=== PATIENT | male | born 1955 | race Caucasian/White ===

== ENCOUNTER 2024-01-13 16:44 | Emergency (ER) | payer SELFPAY ==
[~2024-01-13] VITALS: Ht 182.9 cm; Wt 86.4 kg
[2024-01-13] VITALS (29 sets, daily range): BP systolic 141–195; BP diastolic 71–108
[~2024-01-13 16:44] MED LIST: MUPIROCIN21 TOP
[2024-01-13] MEDS ORDERED: RYTARY PO (16:59)
[2024-01-13 17:12] LABS: BASO% 0.3 % (0-3); EOS% 0.7 % (0-8); HEMATOCRIT 37.3 % (39.0-50.0); IMMATURE GRANULOCYTES 0.1 % (0.0-5.0); LYMPH% 14.5 % (15-41); MEAN CELL VOLUME 93.7 fL CALC (80.0-100.0); MEAN CORPUSCULAR HGB 32.7 pG CALC (26.0-32.0); MEAN CORPUSCULAR HGB CONC 34.9 g/dL CAL (32.0-36.0); MONO% 6.4 % (2-13); NEUT# 5.59 thou/uL (1.82-7.42); RED BLOOD COUNT 3.98 mill/uL (4.70-6.10); RED CELL DISTRI WIDTH 12.7 % (11.5-15.5)
[2024-01-13 17:30] LABS: ALBUMIN 3.8 g/dL (3.2-5.0); ALKALINE PHOSPHATASE 57 u/l (38-126); ANION GAP 4 (6-22 (CALC)); BILIRUBIN, TOTAL 1.5 mg/dL (0.2-1.3); BUN 25 mg/dL (8-23); BUN/CREATININE RATIO 29 (12-20 (CALC)); CARBON DIOXIDE 25 mmol/l (22-30); CHLORIDE 112 mmol/l (95-108); CREATININE 0.8 mg/dL (0.7-1.3); ESTIMATED GFR 97 ML/MIN (>=90 (CALC)); ETHYL ALCOHOL 0 mg/dl (0-30); MAGNESIUM 2.1 mg/dL (1.6-2.3); POTASSIUM 3.7 mmol/l (3.5-5.1); SGOT/AST 77 u/l (19-48); SODIUM 137 mmol/l (137-146); TOTAL PROTEIN 6.4 g/dL (6.3-8.2)
[2024-01-13 17:52] LABS: URINE BLOOD DIPSTICK Negative (NEGATIVE); URINE GLUCOSE - DIPSTICK Negative (NEGATIVE); URINE KETONE 15 mg/dL (NEGATIVE); URINE LEUK ESTERASE Negative (NEGATIVE); URINE NITRITE - DIPSTICK Negative (Negative); URINE PROTEIN - DIPSTICK 30 mg/dL (NEG-TRACE); URINE SPECIFIC GRAVITY >=1.030; URINE UROBILINOGEN - DIPSTICK 0.2 E.U./dL (0.2)
[2024-01-13 17:54] LABS: URINE COLOR Yellow
[2024-01-14] VITALS (64 sets, daily range): BP systolic 94–182; BP diastolic 53–100
== END 2024-01-14 15:49 | DRG 885 ==
LOC: ED 16:44
PROVIDERS: Family Medicine
DX: F22 Delusional disorders (principal); G20.A1 Parkinson's disease without dyskinesia, without mention of fluctuations; Z20.822 Contact with and (suspected) exposure to COVID-19